=== PATIENT | male | born 1950 | race Caucasian/White ===

== ENCOUNTER 2016-09-02 05:13 | Emergency (ER) | payer OTHER ==
[~2016-09-02] VITALS: Ht 172.7 cm; Wt 76.6 kg
[~2016-09-02 05:13] MED LIST: ALBU0.63 NEB; AMOX PO; APIX5TAB PO; ATORVASTATIN CA80 MG PO; BUDE10.2 IH; CARV6.252 PO; CLAV PO; CLIN300C86 PO; CYCL10TA2 PO; DOCU100C5 PO; DUONEB NEB; FOLI1TAB16 PO; GUAI473S3 PO; HYDR-2666 PO; HYDR-79 PO; HYDR25CA75 PO; LIDO700A4 TD; LIDO700A4 TP; LORA10TA3 PO; MIRT30TA3 PO; OXYC1TAB8 PO; PRAZ2CAP2 PO; ROPI1TAB PO; SERT100T PO; TRAM50TA PO; [UNRECOGNIZED DRUG - REMARK]; [UNRECOGNIZED DRUG - REMARK]; [UNRECOGNIZED DRUG - REMARK]; [UNRECOGNIZED DRUG - REMARK]
[2016-09-02 05:20] VITALS: BP 126/80
--- NOTE | 2016-09-02 05:22 | PHYS DOC ---
General Stated Complaint: LOWER BACK PAIN Time Seen by MD: 05:18 Problems: History of Present Illness Initial Comments Patient here for left hip pain. Patient says it started about 5:00 yesterday evening. This has increased over the night and his been unable to sleep. He says this feels similar to pain he had before when his come to the ER. He does have problems with chronic low back pain as well but says his pain is mostly in the left hip, that shoots down his leg, causing his leg feel numb as well. He normally does use a cane at home with his chronic back pain flares up and still been able to get around using a cane. There is no history of new injury or trauma to the area. He's had no fever chills URI symptoms or cough. There's no chest pain or shortness of breath. No nausea vomiting or abdominal pain. There is no change amount or bladder habits and no other focal extremity or neurologic complaints except as noted. He does have numbness and shooting pains in the left leg but no weakness is noted. As described, he has been able to be up and around with a cane. Patient states she's done nothing for this home. He says he does not have a primary care doctor. I did review the chart and apparently had seen the patient last year, when he is referred [place]. I asked if he did go to [place] and he says he only goes there for psychiatric purposes. He does not have a primary care physician at that facility. Patient's past medical history according him is remarkable for PTSD as well as chronic low back pain. He also states, with surgical scars noted on exam, and that he had a triple aneurysm with 5 bypasses. He is a nonsmoker and nonuser of ethanol. He drove himself here tonight. Allergies: Coded Allergies: I S O L A T I O N *CONTACT* (Verified Allergy, Unknown, 11/08/15) +MRSA nasal 11-07-15 diphenhydramine (Verified Adverse Reaction, Intermediate, 11/07/15) Past Medical History Medical History: other Surgical History: other Psychosocial History: post traumatic stress Social History Smoker: non-smoker Alcohol: none Review of Systems All Other Systems: Reviewed and Negative Physical Exam General Appearance: WD/WN, no apparent distress Ear, Nose, Throat: normal ENT inspection, normal pharynx Neck: full range of motion, supple, normal inspection Respiratory: lungs clear, normal breath sounds, no respiratory distress Cardiovascular: regular rate, rhythm, no edema Gastrointestinal: non tender, soft, no organomegaly Back: no CVA tenderness Extremities: other Neurologic/Psychiatric: no motor/sensory deficits, alert, normal mood/affect, oriented x 3 Skin: normal color Lymphatic: no adenopathy Comments Generally this well-developed well-nourished male in no acute distress. He says he prefers to stand because of pain, but is able to sit and lay down with requests. Vitals are as noted. Pertinent findings on physical exam shows the chest to be clear. Cardiovascular exam shows regular rate and rhythm without murmur. The abdomen is soft and nontender without masses or organomegaly. There is no perineal findings. He has a large midline abdominal scar consistent with aneurysm history, but there is no chest scar to correlate his history of bypass. Back shows no CVA tenderness. He is mildly tender over the low lumbar spine as well as over the left low lumbar paraspinal musculature. There is no signs of trauma. Extremity show no rashes cyanosis or edema. He is moderately tender over the area of the left hip. There is no redness, swelling, or signs of trauma. There is no deformity. The leg is not held rotator nor shortened. Patient has subjective numbness in the left foot there is no gross sensory deficits appreciate. He has good 5 over 5 strength in all sites tested, with some giveaway weakness in the left leg due to back and hip pain. Neurologic exam finds him be awake alert oriented and cooperative. Remainder of physical exam is clinically unremarkable. Orders, Labs, Meds Old charts note this is the patient's sixth ER visit since January of last year. His been seen for back pain on several occasions as well as hip bursitis and cellulitis. He was admitted to the hospital in October of last year for back pain as well. He was [facility] this [facility], and it is noted that his exam and complaints were somewhat inconsistent, but he refused to even try to move and subsequently was admitted for intractable back pain. He apparently had an MRI done that shows some degenerative disease. I discussed with the patient at this time, given an unremarkable exam and no new history of injury or trauma, I don't think there is any indications for labs or x-rays. This is probably related to his chronic back pain and degenerative disease. He appears to be neurologically intact. I did indicate we can go ahead and give him something at home for pain. He drove himself here so cannot offer him a shot and he voices understanding. I written prescription for Naprosyn and Norflex. I reinforced the patient indicated to get a primary care physician to follow-up as complaints of chronic back pain. I suggested he consider follow-up [place], [place] [facility], I also did give him a list of local family physicians to choose. He does voice understanding need to follow-up with primary care or return to the ER sooner as needed if worsen anyway. He is up and about on his feet and okay for discharge this time. Unfortunately, given his recent history of ED use, I fully expect we' ll see him back in the ED in fairly short order with similar complaints of pain. HARLEEN VO MD Sep 02, 2016 05:22
== END 2016-09-02 05:45 | disposition home or self-care (01) ==
LOC: ER 05:26
DX: G89.29 Other chronic pain (principal); M25.552 Pain in left hip; M54.5 Low back pain; Z88.8 Allergy status to other drugs, medicaments and biological substances; Z91.041 Radiographic dye allergy status
CPT/HCPCS: 99283